=== PATIENT | female | born 1980 | race Caucasian/White ===

== ENCOUNTER 2017-05-14 12:35 | Emergency (ER) | payer MEDICAID ==
[~2017-05-14] VITALS: Ht 162.6 cm; Wt 60.0 kg
[2017-05-14] MEDS ORDERED: IBUP-2028 PO (12:50)
[2017-05-14] MEDS ORDERED: SODIUM CHLORIDE 0.9% 1,000 ML IV ONE (20:30)
[2017-05-14] MEDS ORDERED: METOCLOPRAMIDE HCL 10MG/2ML VIAL IV ONE (20:30)
[2017-05-14] MEDS ORDERED: KETOROLAC 30MG/ML VIAL IV ONE (20:30)
[2017-05-14 22:32] VITALS: BP 111/66
== END 2017-05-14 23:06 | disposition home or self-care (01) ==
LOC: ER 16:12
DX: G43.909 Migraine, unspecified, not intractable, without status migrainosus (principal)
CPT/HCPCS: 81025; 96361; 96374; 96375; 99284; J1885; J2765; J7030; Z7610